=== PATIENT | male | born 1950 | race Caucasian/White ===

== ENCOUNTER 2017-01-21 11:36 | Emergency (ER) | payer MEDICARE, OTHER ==
--- NOTE | 2017-01-21 12:09 | ED Physician Documentation ---
PD HPI WOUND RECHECK - Stated complaint Stated Complaint: INCISION BLEED ABDOMEN - Chief complaint Chief Complaint: Abd Pain - Histroy obtained from History obtained from: Patient - History of Present Illness Location: Abdomen (noted some blood come out from upper part of abd incision. He is 13 days post op from colon surgery. Eating okay an dhaving bowel movements. Notes some red blood with wiping after BMs, but no dark stool.) Timing - onset: Today Associated symptoms: No: Fever, Redness, Swelling Similar symptoms before: Has not had sx before Recently seen: Surgery (13 days ago in [place] while traveling. Had colon surgery for hernia/obstruction, with primary anastomosis. was to see PMD for post-op. Noted some blood froma bd wound this mroning. still with amira in place. No fever, redness, pus.) Review of Systems Constitutional: denies: Fever, Chills GI: reports: Bloody / black stool (red blood and tenderness with wiping after BMs.) PD PAST MEDICAL HISTORY - Past Medical History Past Medical History: Yes GI: Other Musculoskeletal: Chronic back pain - Past Surgical History Past Surgical History: Yes General: Other - Present Medications Home Medications: Ambulatory Orders Medication Instructions Recorded Confirmed Docusate Sodium 100 mg PO DAILY #30 capsule 01/21/17 Hydrocortisone Acetate [Anucort-Hc] 25 mg RC DAILY #5 supp.rect 01/21/17 Oxycodone HCl/Acetaminophen 1 each PO Q6H PRN #20 tablet 01/21/17 [Percocet 5-325 mg Tablet] - Social History Does the pt smoke?: Yes Smoking Status: Current every day smoker Does the pt drink ETOH?: Yes - Immunizations Immunizations are current?: Yes PD ED PE NORMAL - Vitals Vital signs reviewed: Yes - General General: Alert and oriented X 3, No acute distress, Well developed/nourished - Cardiac Cardiac: RRR, No murmur - Respiratory Respiratory: No respiratory distress, Clear bilaterally - Abdomen Abdomen: Normal bowel sounds, Soft, Non distended, No organomegaly, Other ( steri strips on abd incision wound. clean and dry except mild dried blood at upper end. No signs of infection. bedside U/S showed no fluid collections under skin. Amira in place too and these were removed without problem. ) - Rectal Rectal: Other (external hemorrhoids, not thrmobosed, with guiac negative stool otherwise. ) - Back Back: No CVA TTP - Derm Derm: Normal color, Warm and dry - Extremities Extremities: No edema, No calf tenderness / cord - Neuro Neuro: Alert and oriented X 3, No motor deficit, Normal speech Results - Vitals Vitals: Vital Signs - 24 hr 01/21/17 01/21/17 11:40 12:40 Temperature 36.5 C Heart Rate 84 88 Respiratory 17 18 Rate Blood Pressure 114/76 104/68 O2 Saturation 97 96 Oxygen O2 Source Room air PD MEDICAL DECISION MAKING - ED course Complexity details: considered differential (steri strips removed and no signs of infection at wounds. Bedside U/S shows no obvious residula hematoma. ), d/w patient Departure - Departure Disposition: 01 Home, Self Care Clinical Impression: Postoperative bleeding from incision Hemorrhoids Qualifiers: Hemorrhoid type: unspecified Qualified Code(s): K64.9 - Unspecified hemorrhoids Condition: Stable Record reviewed to determine appropriate education?: Yes Instructions: ED Hemorrhoids Follow-Up: JOSÉ Gomez [Provider Group] Prescriptions: Hydrocortisone Acetate [Anucort-Hc] 25 mg RC DAILY #5 supp.rect Docusate Sodium 100 mg PO DAILY #30 capsule Oxycodone HCl/Acetaminophen [Percocet 5-325 mg Tablet] 1 each PO Q6H PRN #20 tablet PRN Reason: Pain Comments: Drink lots of fluids. Daily stool softener. Continue pain meds as needed, but trying to taper use over the next week or so. Regular Tylenol for milder pain. Anusol suppository daily for 5 days for hemorrhoid. Recheck with PMD in 4-5 days , call for appt. Discharge Date/Time: 01/21/17 12:45
[2017-01-21 12:41] VITALS: BP 104/68
== END 2017-01-21 12:45 | disposition home or self-care (01) ==
LOC: ED 11:36
DX: K91.841 Postprocedural hemorrhage of a digestive system organ or structure following other procedure (principal); K64.9 Unspecified hemorrhoids; F17.200 Nicotine dependence, unspecified, uncomplicated
CPT/HCPCS: 99283

== ENCOUNTER 2018-06-10 13:05 | Emergency (ER) | payer MEDICARE, OTHER ==
[2018-06-10] MEDS ORDERED: ACETAMINOPHEN 325 MG TABLET PO STA (14:34)
[2018-06-10] MEDS ORDERED: SODIUM CHLORIDE 0.9% 1,000 ML IV ONE (14:39)
[2018-06-10 15:03] LABS: BASOPHILS # (AUTO) 0.1 10^3/uL (0.0-0.1); BASOPHILS % (AUTO) 0.6 %; EOSINOPHILS % (AUTO) 0.1 %; LYMPHOCYTES # (AUTO) 0.3 10^3/uL (1.5-3.5); LYMPHOCYTES % (AUTO) 2.3 %; MEAN CORPUSCULAR HEMOGLOBIN 38.1 pg (27.0-31.0); MEAN CORPUSCULAR HGB CONC 35.6 g/dL (32.0-36.0); MEAN CORPUSCULAR VOLUME 107.1 fL (80.0-94.0); MEAN PLATELET VOLUME 6.7 fL (7.4-11.4); MONOCYTES # (AUTO) 0.5 10^3/uL (0.0-1.0); MONOCYTES % (AUTO) 3.6 %; NEUTROPHILS # (AUTO) 12.4 10^3/uL (1.5-6.6); NEUTROPHILS % (AUTO) 93.4 %; PLT - PLATELET COUNT 281 10^3/uL (130-450); RED BLOOD COUNT 3.41 10^6/uL (4.70-6.10); WHITE BLOOD COUNT 13.2 x10^3/uL (4.8-10.8)
[2018-06-10 15:18] LABS: ALBUMIN 4.2 g/dL (3.2-5.5); ALBUMIN/GLOBULIN RATIO 1.4 (1.0-2.2); BILIRUBIN,TOTAL 0.7 mg/dL (0.2-1.0); CALCIUM 10.8 mg/dL (8.5-10.3); CREATININE 0.7 mg/dL (0.6-1.2); TOTAL PROTEIN 7.1 g/dL (6.7-8.2)
--- NOTE | 2018-06-10 15:29 | XRAY Report ---
Reason: FEVER Procedure Date: 06/10/2018 Accession Number: [id number] / [id number] Procedure: XR - Chest 2 View X-Ray CPT Code: 46275 FULL RESULT: EXAM: CHEST RADIOGRAPHY EXAM DATE: 06/10/2018 03:01 PM. CLINICAL HISTORY: FEVER. COMPARISON: None. TECHNIQUE: 2 views. FINDINGS: Lungs/Pleura: No focal opacities evident. No pleural effusion. No pneumothorax. Normal volumes. Mediastinum: Heart and mediastinal contours are unremarkable. Other: None. IMPRESSION: Normal 2-view chest radiography. RAD[facility]
[2018-06-10 16:20] LABS: BILIRUBIN,URINE NEGATIVE (NEGATIVE); GLUCOSE, URINE (UA) NEGATIVE (NEGATIVE); KETONES,URINE (UA) NEGATIVE (NEGATIVE); LEUKOCYTE ESTERASE, URINE MODERATE (NEGATIVE); NITRITE,URINE POSITIVE (NEGATIVE); OCCULT BLOOD,URINE LARGE (NEGATIVE); PH,URINE 7.5 PH (5.0-7.5); PROTEIN,URINE TRACE mg/dL (NEGATIVE); UROBILINOGEN,URINE 0.2 (NORMAL) E.U./dL (NORMAL)
[2018-06-10 16:22] LABS: CLARITY,URINE HAZY (CLEAR)
[2018-06-10 16:36] LABS: BACTERIA,URINE Rare /HPF (None Seen); SQUAMOUS EPITHELIAL CELL,UR NONE SEEN (<= Few); WBC CLUMPS,URINE PRESENT
[2018-06-10] MEDS ORDERED: cefTRIAXone 1 GM in SODIUM CHLORIDE 0.9% MINIBAG 100 ML IV STA (17:01)
--- NOTE | 2018-06-10 18:38 | ED Physician Documentation ---
History of Present Illness - Stated complaint Stated Complaint: CHILLS/FEVER - Chief complaint Chief Complaint: Fever - History obtained from History obtained from: Patient - History of Present Illness Timing: Prior to arrival Pain level max: 0 Pain level now: 0 Quality: FEVER 102 Improved by: NOTHING Worsened by: NOTHING Associated symptoms: PINKISH URINE - Additonal information Additional information: Pt states had a prostate biopsy yesterday without complications and sent home on Cipro. Woke up this morning with a fever. Denies any pain and other symptoms except for hematuria which was expected after prostate biopsy. Denies any sick contact or travel. Review of Systems Ten Systems: 10 systems reviewed and negative Constitutional: reports: Fever. denies: Myalgias Nose: denies: Rhinorrhea / runny nose, Congestion Throat: denies: Sore throat Cardiac: denies: Chest pain / pressure Respiratory: denies: Dyspnea, Cough GI: denies: Abdominal Pain, Nausea, Vomiting, Diarrhea : reports: Frequency, Hematuria. denies: Dysuria Skin: denies: Rash PD PAST MEDICAL HISTORY - Past Medical History Past Medical History: Yes Cardiovascular: Hypertension Respiratory: COPD Neuro: None Endocrine/Autoimmune: None GI: Other HEENT: None Musculoskeletal: Rheumatoid arthritis, Chronic back pain Derm: None Other Past Medical History: multiple colon resections - Past Surgical History Past Surgical History: Yes General: Other - Present Medications Home Medications: Ambulatory Orders Medication Instructions Recorded Confirmed Docusate Sodium 100 mg PO DAILY #30 capsule 01/21/17 Oxycodone HCl/Acetaminophen 1 each PO Q6H PRN #20 tablet 01/21/17 [Percocet 5-325 mg Tablet] Alfuzosin HCl [Uroxatral] 10 mg PO 06/10/18 Cephalexin [Keflex] 500 mg PO TID 10 Days #30 capsule 06/10/18 Ciprofloxacin/Ciprofloxa HCl 500 mg PO BID 06/10/18 06/10/18 [Ciprofloxacin ER 500 mg Tablet] Cyclobenzaprine [Flexeril] 06/10/18 Fluticasone/Salmeterol [Advair 1 each IH BID 06/10/18 06/10/18 100-50 Diskus] Lisinopril 10 mg PO DAILY 06/10/18 06/10/18 - Allergies Allergies/Adverse Reactions: Allergies Allergy/AdvReac Type Severity Reaction Status Date / Time No Known Drug Allergies Allergy Verified 06/10/18 13:18 - Social History Does the pt smoke?: Yes Smoking Status: Current every day smoker Does the pt drink ETOH?: Yes - Family History Family history: reports: Non contributory - Immunizations Immunizations are current?: Yes PD ED PE NORMAL - Vitals Vital signs reviewed: Yes - General General: Alert and oriented X 3, No acute distress, Well developed/nourished - HEENT HEENT: Moist mucous membranes, Pharynx benign - Neck Neck: Supple, no meningeal sign - Cardiac Cardiac: RRR, No murmur - Respiratory Respiratory: No respiratory distress, Clear bilaterally - Abdomen Abdomen: Normal bowel sounds, Soft, Non tender, Non distended - Back Back: No CVA TTP - Derm Derm: Warm and dry, No rash - Extremities Extremities: No deformity - Neuro Neuro: Alert and oriented X 3 - Psych Psych: Normal mood, Normal affect Results - Vitals Vitals: Vital Signs - 24 hr 06/10/18 06/10/18 06/10/18 13:14 14:05 15:32 Temperature 37.1 C 37.6 C H Heart Rate 113 H 106 H 92 Respiratory 22 16 12 Rate Blood Pressure 121/76 108/61 123/76 O2 Saturation 97 96 96 06/10/18 17:21 Temperature 36.8 C Heart Rate 85 Respiratory 18 Rate Blood Pressure 107/73 O2 Saturation 98 Oxygen O2 Source Room air - Labs Labs: Laboratory Tests 06/10/18 06/10/18 06/10/18 14:50 14:50 14:50 WBC 13.2 H RBC 3.41 L Hgb 13.0 L Hct 36.5 L MCV 107.1 H MCH 38.1 H MCHC 35.6 RDW 13.0 Plt Count 281 MPV 6.7 L Neut # (Auto) 12.4 H Lymph # (Auto) 0.3 L [place] # (Auto) 0.5 Eos # (Auto) 0.0 Baso # (Auto) 0.1 Absolute Nucleated RBC 0.01 Nucleated RBC % 0.0 Sodium 129 L Potassium 4.0 Chloride 97 L Carbon Dioxide 24 Anion Gap 8.0 BUN 11 Creatinine 0.7 Estimated GFR (MDRD) 112 Glucose 103 H Lactic Acid 0.9 Calcium 10.8 H Total Bilirubin 0.7 AST 23 ALT 16 Alkaline Phosphatase 64 Total Protein 7.1 Albumin 4.2 Globulin 2.9 Albumin/Globulin Ratio 1.4 Urine Color Urine Clarity Urine pH Ur Specific [place] Urine Protein Urine Glucose (UA) Urine Ketones Urine Occult Blood Urine Nitrite Urine Bilirubin Urine Urobilinogen Ur Leukocyte Esterase Urine RBC Urine WBC Urine WBC Clumps Ur Squamous Epith Cells Urine Bacteria Ur Microscopic Review Urine Culture Comments 06/10/18 16:11 WBC RBC Hgb Hct MCV MCH MCHC RDW Plt Count MPV Neut # (Auto) Lymph # (Auto) [place] # (Auto) Eos # (Auto) Baso # (Auto) Absolute Nucleated RBC Nucleated RBC % Sodium Potassium Chloride Carbon Dioxide Anion Gap BUN Creatinine Estimated GFR (MDRD) Glucose Lactic Acid Calcium Total Bilirubin AST ALT Alkaline Phosphatase Total Protein Albumin Globulin Albumin/Globulin Ratio Urine Color YELLOW Urine Clarity HAZY Urine pH 7.5 Ur Specific [place] 1.020 Urine Protein TRACE Urine Glucose (UA) NEGATIVE Urine Ketones NEGATIVE Urine Occult Blood LARGE H Urine Nitrite POSITIVE H Urine Bilirubin NEGATIVE Urine Urobilinogen 0.2 (NORMAL) Ur Leukocyte Esterase MODERATE H Urine RBC 6-10 H Urine WBC >25 H Urine WBC Clumps PRESENT Ur Squamous Epith Cells NONE SEEN Urine Bacteria Rare Ur Microscopic Review INDICATED Urine Culture Comments INDICATED PD MEDICAL DECISION MAKING - ED course Complexity details: re-evaluated patient (1700 Pt informed of test results. Agreed to IV Rocephin for his UTI. Pt states he feels good and wants to go home. Will discharge on Keflex. 1830 Tolerated Rocephin, IVF and oral fluids. NAD. Nontoxic appearing. Sitting at the bedside. Discussed outpt treatment plans: Keflex, water, urology appointment, PCP to recheck sodium level. Pt and expressed understanding after questions were answered.), considered differential (post procedural fever, UTI, sepsis), d/w patient, d/w family Departure - Departure Disposition: 01 Home, Self Care Clinical Impression: Hyponatremia Fever Qualifiers: Fever type: post-procedural Qualified Code(s): R50.82 - Postprocedural fever UTI (urinary tract infection) Qualifiers: Urinary tract infection type: acute cystitis Hematuria presence: without hematuria Qualified Code(s): N30.00 - Acute cystitis without hematuria Condition: Good Instructions: ED UTI Cystitis Male, ED Fever Control, ED Hyponatremia Follow-Up: Dee Pastrana MD [Primary Care Provider] - Prescriptions: Cephalexin [Keflex] 500 mg PO TID 10 Days #30 capsule Comments: DRINK 6-8 GLASSES OF WATER PER DAY. TAKE THE ANTIBIOTIC KEFLEX PRESCRIBED FOR YOUR UTI. URINE AND BLOOD CULTURES WERE DONE AND RESULTS ARE PENDING. CALL YOUR UROLOGIST ON WEDNESDAY AND GET AN EARLIER APPOINTMENT. IF WORSE RETURN TO THE E.R. YOUR SODIUM LEVEL TODAY IS 129. INFORM YOUR PCP YOU MAY NEED TO HAVE IT RECHECK ON WEDNESDAY.
[2018-06-10 18:54] VITALS: BP 125/80
== END 2018-06-10 18:56 | disposition home or self-care (01) ==
LOC: ED 13:05
DX: E87.1 Hypo-osmolality and hyponatremia (principal); R50.82 Postprocedural fever; N30.00 Acute cystitis without hematuria
CPT/HCPCS: 71046; 80053; 81001; 83605; 85025; 87040; 87086; 87181; 96361; 96365; 99283; 99284; A9270; 81003

== ENCOUNTER 2018-06-11 07:40 | Inpatient (IN) | payer MEDICARE, OTHER ==
--- NOTE | 2018-06-11 08:24 | ED Physician Documentation ---
History of Present Illness - Stated complaint Stated Complaint: ABN LAB RESULT - Chief complaint Chief Complaint: General - History obtained from History obtained from: Patient - History of Present Illness Timing: Yesterday Pain level max: 0 Pain level now: 0 Associated symptoms: fever, chills, hematuria, hesitancy - Additonal information Additional information: Pt was seen here yesterday for fever, dysuria and hematuria. Pt had a prostate biopsy done June [address] Pastrana and sent home on Cipro. Yesterday in the E.R. pt was febrile and labs showed UTI. Pt received Rocephin and sent home on Keflex. Pt wanted to go home. He was NAD, nontoxic. Since pt left the E.R. yesterday he denied recurrence of his fever. He stated that he has more strings of blood coming out when he urinates, he continues to have urgency, hesitancy and hematuria. He states he feels more tired than yesterday. Review of Systems Ten Systems: 10 systems reviewed and negative Constitutional: reports: Fever, Chills, Fatigue Throat: denies: Sore throat Cardiac: denies: Chest pain / pressure Respiratory: denies: Dyspnea, Cough GI: denies: Abdominal Pain, Nausea, Vomiting, Diarrhea : reports: Dysuria, Frequency, Hesitancy, Hematuria Skin: denies: Rash Neurologic: reports: Generalized weakness. denies: Focal weakness, Near syncope, Confused, Altered mental status PD PAST MEDICAL HISTORY - Past Medical History Past Medical History: Yes Cardiovascular: Hypertension Respiratory: COPD Neuro: None Endocrine/Autoimmune: None GI: Other HEENT: None Musculoskeletal: Rheumatoid arthritis, Chronic back pain Derm: None - Past Surgical History Past Surgical History: Yes General: Other - Present Medications Home Medications: Ambulatory Orders Medication Instructions Recorded Confirmed Alfuzosin HCl [Uroxatral] 10 mg PO 1700 06/10/18 06/11/18 Fluticasone/Salmeterol [Advair 1 puffs INH BID 06/10/18 06/11/18 100-50 Diskus] RX: Cyclobenzaprine [Flexeril] 10 mg PO DAILY PRN 06/10/18 06/11/18 RX: Lisinopril 10 mg PO DAILY 06/10/18 06/11/18 Cephalexin [Keflex] 500 mg PO [id number] 06/11/18 06/11/18 Multivit-Min/FA/Lycopen/Lutein 1 tab PO DAILY 06/11/18 06/11/18 [Centrum Silver Men Tablet] Oxycodone HCl/Acetaminophen 1 tab PO BID PRN 06/11/18 06/11/18 [Oxycodone-Acetaminophen 5-325] RX: Tizanidine HCl 4 mg PO QID PRN 06/11/18 06/11/18 - Allergies Allergies/Adverse Reactions: Allergies Allergy/AdvReac Type Severity Reaction Status Date / Time No Known Drug Allergies Allergy Verified 06/11/18 07:53 - Social History Does the pt smoke?: Yes Smoking Status: Current every day smoker Does the pt drink ETOH?: Yes Does the pt have substance abuse?: No - Family History Family history: reports: Non contributory - Immunizations Immunizations are current?: Yes - POLST Patient has POLST: No PD ED PE NORMAL - Vitals Vital signs reviewed: Yes - General General: Alert and oriented X 3, No acute distress, Well developed/nourished - HEENT HEENT: Pharynx benign, Other (dry tongue) - Neck Neck: Supple, no meningeal sign, No adenopathy - Cardiac Cardiac: RRR, No murmur - Respiratory Respiratory: No respiratory distress, Clear bilaterally - Abdomen Abdomen: Normal bowel sounds, Soft, Non tender, Non distended, Other (old surgical scars and hernia) - Back Back: No CVA TTP - Derm Derm: Normal color, Warm and dry, No rash - Extremities Extremities: No deformity, Normal ROM s pain - Neuro Neuro: Alert and oriented X 3 - Psych Psych: Normal mood, Normal affect Results - Vitals Vitals: Vital Signs - 24 hr 06/11/18 07:49 Temperature 36.6 C Heart Rate 93 Respiratory 20 Rate Blood Pressure 119/79 O2 Saturation 97 Oxygen O2 Source Room air PD MEDICAL DECISION MAKING - ED course Complexity details: re-evaluated patient (Explained to pt blood cultures and agreed to admission.), considered differential (urosepsis, bacteremia, pr ostatis, post procedural complication), d/w patient (Explained to pt and +blood cultures requiring IV antibiotics. They agreed with admission.), d/w family, d/w PMD ([id number] Case discussed with hospitalist Dr. Peralta including urology consult. Agreed to admit pt, full admission. Informed her I gave pt Rocephin yesterday.), d/w linux consultant ([phone] Lui urologist covering for pt's urologist. Agreed with plan of admission for IV antibiotics but does not think urology follow up in pt is required. He will inform pt' urologist regarding admission.) - Consults Consults: Consulted (name) ([phone] Dr Lui covering for pt's urologist. Case discussed. He stated there's 1% after a procedure pt becomes septic. He agreed with admitting pt but states its a medical problem at this time and pt will not need a urologist.), Discussed case with ([phone] Case discussed in details with education department chair Hospitalist Dr Devante Peralta including recent urology consult. I informed her pt received Rocephin yesterday. She stated she will take care of ordering the antibiotics and pt will be a full admission.) Departure - Departure Disposition: 66 [facility] DC/Xfer Clinical Impression: Bacteremia UTI (urinary tract infection) Qualifiers: Urinary tract infection type: site unspecified Hematuria presence: with hematuria Qualified Code(s): N39.0 - Urinary tract infection, site not specified Condition: Stable Discharge Date/Time: 06/11/18 09:20
[2018-06-11] MEDS ORDERED: SODIUM CHLORIDE FLUSH 0.9% 10 ML SYRINGE IVP PRN (08:40)
[2018-06-11 08:51] LABS: BASOPHILS # (AUTO) 0.1 10^3/uL (0.0-0.1); BASOPHILS % (AUTO) 0.7 %; EOSINOPHILS % (AUTO) 0.1 %; HGB - HEMOGLOBIN 12.1 g/dL (14.0-18.0); LYMPHOCYTES # (AUTO) 0.7 10^3/uL (1.5-3.5); LYMPHOCYTES % (AUTO) 4.1 %; MEAN CORPUSCULAR HGB CONC 35.1 g/dL (32.0-36.0); MEAN CORPUSCULAR VOLUME 108.2 fL (80.0-94.0); MEAN PLATELET VOLUME 7.2 fL (7.4-11.4); MONOCYTES # (AUTO) 0.6 10^3/uL (0.0-1.0); MONOCYTES % (AUTO) 3.6 %; NEUTROPHILS # (AUTO) 14.6 10^3/uL (1.5-6.6); NEUTROPHILS % (AUTO) 91.5 %; PLT - PLATELET COUNT 241 10^3/uL (130-450); RED BLOOD COUNT 3.19 10^6/uL (4.70-6.10); RED CELL DISTRIBUTION WIDTH 12.9 % (12.0-15.0)
[2018-06-11 08:59] LABS: CALCIUM 10.4 mg/dL (8.5-10.3); CREATININE 0.7 mg/dL (0.6-1.2)
[2018-06-11] MEDS: SODIUM CHLORIDE 0.9% 1,000 ML IV ONE ×2 (09:19→14:14)
--- NOTE | 2018-06-11 09:25 | HISTORY & PHYSICAL EXAMINATION ---
Chief Complaint - Chief Complaint Chief Complaint: positive blood cultures from yesterday History of Present Illness - Admitted From Admitted From:: ED - History Obtained From Records Reviewed: yes History obtained from: chart review, patient, -Gretchen Exam Limitations: none - History of Present Illness HPI Comment/Other: Pedro Hooker (Bob) is a 67-year old male with a past medical history of life long tobacco dependence, current alcoholism, COPD, chronic cough, chronic sinusitis, GERD, colon polyps, ischemic bowel with resection, umbilical hernia, hypertension, prostate cancer, RA, and chronic back pain. The patient underwent a prostate biopsy with Dr. Pastrana on 06/09/18 and was sent home on prophylactic Cipro. Yesterday he had fevers, chills, and severe rigors at home, so presented to the ED. He was stabilized and sent home, but this morning, blood cultures that were obtained yesterday show e. coli, so the patient was called at home to return to the ED for an inpatient admission. Upon arrival to the ED the patient has continued fatigue, poor appetite, rigors, chills, and a fever overnight that his took and reports as 102.4 orally. He states that he is having increased urinary retention symptoms, and when he does urinate, it is blood streaked. On exam, he denies chest pain, headaches, dizziness, nausea, vomiting, diarrhea, a new rash, increased shortness of breath, or a new productive cough. Vital signs appear stable and he is afebrile. He is accompanied by his Gretchen. He is agreeable to a hospital admission for treatment of this e. coli in his blood stream. With his current alcohol use, I will prescribe BEER, to prevent alcohol withdrawal. 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 and consequently has chronic back pain. He is to Gretchen of 18 years, and they each have children seperately. He and Gretchen spend [place] on [facility] and lin in [place] at their second home. He admits to tobacco use since the age of 17, and currently smokes 2 PPD, alcoholism and currently drinks 6-8 beers per day. He has been using THC oils which he adds to his morning coffee. He states that he has a POLST form at home, and wishes to be a DNR. - Substance History Use: Uses substance without health or social issues: Tobacco Use Issues: uncomplicated Abuse: Recurrent use of substance despite neg consequences: NONE Dependence: Experiences withdrawal or developed tolerances: NONE Tobacco Details: Cigarettes - POLST Patient has POLST: No POLST Status: DNR Meds/Allgy - Home Medications Home Medications: Ambulatory Orders Medication Instructions Recorded Confirmed Alfuzosin HCl [Uroxatral] 10 mg PO 1700 06/10/18 06/11/18 Cyclobenzaprine [Flexeril] 10 mg PO DAILY PRN 06/10/18 06/11/18 Fluticasone/Salmeterol [Advair 1 puffs INH BID 06/10/18 06/11/18 100-50 Diskus] Lisinopril 10 mg PO DAILY 06/10/18 06/11/18 Cephalexin [Keflex] 500 mg PO [id number] 06/11/18 06/11/18 Multivit-Min/FA/Lycopen/Lutein 1 tab PO DAILY 06/11/18 06/11/18 [Centrum Silver Men Tablet] Oxycodone HCl/Acetaminophen 1 tab PO BID PRN 06/11/18 06/11/18 [Oxycodone-Acetaminophen 5-325] Tizanidine HCl 4 mg PO QID PRN 06/11/18 06/11/18 - Allergies Allergies/Adverse Reactions: Allergies Allergy/AdvReac Type Severity Reaction Status Date / Time No Known Drug Allergies Allergy Verified 06/11/18 07:53 Review of Systems - Constitutional Constitutional: reports: Fatigue, Fever, Chills, Weakness - Eyes Eyes: reports: Corrective lenses - Ears, Nose & Throat Ears, Nose & Throat: reports: Nasal congestion, Postnasal drainage - Respiratory Respiratory: reports: Cough, Sputum production - Gastrointestinal Gastrointestinal: reports: Reflux/heartburn, Poor appetite - Genitourinary Genitourinary: reports: Hematuria, Nocturia - Musculoskeletal Musculoskeletal: reports: Back pain (chronic) - Integumentary Integumentary: reports: Dryness, Pigment changes - Neurological Neurological: reports: General weakness - All Other Systems All Other Systems: reports: Reviewed and negative Prior Level of Functionality: Independent, no recent falls. Does all ADLs, drives. Exam - Vital Signs Reviewed Vital Signs: Yes Vital Signs: Vital Signs x48h Temp Pulse Resp BP Pulse Ox 06/11/18 07:49 36.6 C 93 20 119/79 97 - Physical Exam General Appearance: positive: No acute distress, Alert Eyes Bilateral: positive: PERRL ENT: positive: Pharynx nml, No signs of dehydration Neck: positive: Thyroid nml, No JVD, Trachea midline Respiratory: positive: Chest non-tender, No respiratory distress, Other (bilat eral low lobe crackles.) Cardiovascular: positive: Regular rate & rhythm, No gallop, Systolic murmur Peripheral Pulses: positive: 2+ Abdomen: positive: Non-tender, Nml bowel sounds, Other (midline hernia, soft and stable.) Back: positive: Nml inspection Skin: positive: No rash, Warm, Dry Extremities: positive: Non-tender, Full ROM, Nml appearance, No pedal edema Neurologic/Psychiatric: positive: Oriented x3, CN's nml (2-12), Motor nml, Sensation nml, Mood/affect nml Reflexes: Bicep (R): 3+, Bicep (L): 3+ Conclusion/Plan - Problem List (1) E coli bacteremia Conclusion/Plan: On 06/09/18 the patient underwent a prostate biopsy which was obtained per rectum and was sent home with Cipro to be take prophylactically. The patient presented to the ED yesterday (06/10) with fevers, chills and increased fatigue. Blood cultures were drawn and preliminary results early this morning grew e. coli, so a call was made for the patient to return to the ED for inpatient treatment. Plan: IV fluids, IV treatment with Zosyn, await final culture results. (2) Hematuria, gross Conclusion/Plan: The patient describes urinary problems since his prostate bx on 06/09 in which he has increased difficulty with retention and has noticed almaz blood each time that he attempts to urinate. This has been ongoing, and he is agreeable to a sanabria to evaluate the exact amount and to keep his bladder decompressed in hopes to resolve the problem. He likely has some inflammation due to the biopsy, causing urinary retention, which may be leading to the hematuria. Plan: CT abdomen/pelvis to evaluate for other internal bleeding, complications or other causes of this hematuria. Place indwelling sanabria with a prior Uro-jet for comfort. Daily labs to monitor H/H. (3) Fever Conclusion/Plan: The patient had a reported fever at home of 102.4-orally. He had severe rigors, with fevers, chills, poor appetite and generalized fatigue. The patient has b een afebrile today, since admission. Plan: Continue to monitor vital signs and give tylenol for comfort. Alert provider for fevers greater than 101.5 (38.6), for new blood cultures. Qualifiers: Fever type: post-procedural Qualified Code(s): R50.82 - Postprocedural fever (4) Prostate cancer Conclusion/Plan: The patient is seen by Dr. Dee Pastrana at [facility] in [place], [place]. He was first diagnosed in [place] around 3-4 years ago and has been prescribed Alfuzosin. He underwent this latest prostate bx on 06/09 to evaluate and stage it as the patient wanted a more clear prognosis. Plan: I will attach this provider to my admission H&P. Continue Alfuzosin daily, insert sanabria for gross hematuria and urinary retention overnight with hopes to remove in the AM. (5) Alcohol dependence Conclusion/Plan: The patient admits to consuming 6-8 beers per day for the last several years. Plan: BEER TID to prevent alcohol withdrawal. Qualifiers: Substance use status: unspecified alcohol-induced disorder Qualified Code(s): F10.29 - Alcohol dependence with unspecified alcohol-induced disorder (6) Tobacco dependence Conclusion/Plan: The patient states that a year ago, he attempted to quit smoking, but he failed and when he started again graduated to a 2 PPD habit. He has been a life long smoker and started at age 17 years. Plan: Nicotine patch, daily. (7) Chronic back pain Conclusion/Plan: The patient states that he has been a hard worker all of his life. Since 1975, his back has bothered him. He states that no doctor would ever do surgery on it, and they just "throw pills at him to treat it". He is prescribed percocet, and 2 muscle relaxers. He drinks 6-8 beers per night and has recently started adding highly concentrated THC oil to his morning coffee. He also states that he has been told that he has RA in his back and right hand. Plan: Continue home meds, monitor pain and encourage movement. Qualifiers: Back pain location: back pain in unspecified location (8) Hyponatremia Conclusion/Plan: The patient was found to have a low sodium of 128, without confusion. This may be a chronic problem for him given his cancer history and alcoholism. Plan: Daily labs and monitor for increased confusion. - Lab Results Lab results reviewed: Yes Fish Bones: 06/12/18 06:20 06/12/18 06:20 - Diagnostic Imaging Results Diagnostic Imaging Results: positive: Prelim report reviewed Diagnostic Imaging Results Comments: Echo-pending. Abdominal/pelvic CT-ordered. Core Measures - Anticipated LOS I expect patient to be DC'd or transferred within 96 hours.: Yes - DVT/VTE - Prophylaxis VTE/DVT Device ordered at admit?: Yes VTE/DVT Prophylaxis med ordered at admit?: Yes - Stroke - Rehab Assessment Rehab services assessment to be ordered?: No Not Ordered - Medical Reason: Contraindicated - AMI - Statin at Admit Aspirin Prescribed on Admit: Yes
[2018-06-11] MEDS: SODIUM CHLORIDE FLUSH 0.9% 10 ML SYRINGE IVP SCH ×2 (10:14→17:36)
[2018-06-11] MEDS: NICOTINE 21 MG PATCH TOP SCH (10:38)
[2018-06-11] MEDS: POLYETHYLENE GLYCOL 3350 17 GM PACKET PO SCH ×2 (10:38→10:51)
[2018-06-11] MEDS: PIPERACILLIN/TAZOBACTAM 4.5 GM in SODIUM CHLORIDE 0.9% MINIBAG 100 ML IV SCH ×3 (10:38→22:02)
[2018-06-11] MEDS ORDERED: oxyCOD/ACETAMIN 5 MG/325 MG TABLET PO PRN (10:59)
[2018-06-11] MEDS ORDERED: tiZANidine 4 MG TABLET PO PRN (11:02)
[2018-06-11] MEDS ORDERED: BEER 480 ML CAN PO SCH (12:00)
[2018-06-11] MEDS ORDERED: ACETAMINOPHEN 325 MG TABLET PO PRN (13:01)
[2018-06-11] MEDS ORDERED: LORazepam 0.5 MG TABLET PO PRN (13:01)
[2018-06-11] MEDS ORDERED: ONDANSETRON ODT 4 MG TABLET TL PRN (13:02)
[2018-06-11] MEDS: PANTOPRAZOLE 40 MG TABLET PO SCH (14:23)
[2018-06-11] MEDS ORDERED: LIDOCAINE 2% URO-JET 5 ML SYRINGE UR PRN (16:24)
[2018-06-11] MEDS: TAMSULOSIN 0.4 MG CAPSULE PO SCH (17:10)
[2018-06-11] MEDS: SACCHAROMYCES BOULARDII 250 MG CAPSULE PO SCH (17:10)
[2018-06-11] MEDS: BEER 480 ML CAN PO SCH ×3 (17:11→22:32)
[2018-06-11] MEDS: SODIUM CHLORIDE 0.9% 1,000 ML IV SCH (17:11)
[2018-06-11] MEDS: oxyCODONE 5 MG TABLET PO PRN ×2 (17:40→22:02)
[2018-06-11] MEDS: BUDESONIDE 0.5 MG/2 ML NEB INH SCH (19:45)
[2018-06-11] MEDS ORDERED: IOPAMIDOL-300 100 ML VIAL ONE (20:10)
[2018-06-11] MEDS ORDERED: IOPAMIDOL-300 100 ML VIAL IVP ONE (20:26)
--- NOTE | 2018-06-11 22:00 | CT Report ---
Reason: hematuria, bacteremia Procedure Date: 06/11/2018 Accession Number: [id number] / [id number] Procedure: CT - Abdomen/Pelvis W/ CPT Code: FULL RESULT: EXAM: CT ABDOMEN AND PELVIS EXAM DATE: 06/11/2018 08:40 PM. CLINICAL HISTORY: Hematuria, bacteremia. COMPARISONS: None. TECHNIQUE: Routine helical CT imaging was performed through the abdomen and pelvis. IV contrast: ISOVUE 300 100mL. Enteric contrast: No. Reconstructions: Coronal and sagittal. In accordance with CT protocol optimization, one or more of the following dose reduction techniques were utilized for this exam: automated exposure control, adjustment of mA and/or KV based on patient size, or use of iterative reconstructive technique. FINDINGS: Lung Bases: Unremarkable. Liver: Normal. No masses. Gallbladder/Bile Ducts: The gallbladder is contracted. Spleen: Normal. Pancreas: Normal. Adrenal Glands: Normal. Kidneys: There is moderate bilateral retroperitoneal edema. Both kidneys enhance uniformly with contrast. There is an exophytic cyst off the posterior right kidney measuring 38 mm in diameter. There are no kidney stones. No ureter stones. Peritoneal Cavity/Bowel: There are findings of previous colon surgery in the anterior upper abdomen. There is high density material consistent with mesh repair of abdominal wall in the right upper quadrant. The small bowel appears normal in caliber without evidence of mechanical obstruction or transition zone. No pneumatosis. There is a small volume of intraperitoneal free fluid. Pelvic Organs: There is a Tena catheter within the urinary bladder. The bladder is empty. The bladder wall appears thickened. There is generalized fat stranding around the bladder and prostate. Vasculature: There is moderate calcification of the abdominal aorta and iliac arteries. No aneurysm. Bones: No significant abnormality. Other: No abscess. IMPRESSION: 1. Fat stranding or inflammation around urinary bladder and prostate. Possible cystitis or prostatitis. 2. No hydronephrosis, kidney stone, or renal/retroperitoneal abscess. There is perinephric edema which could be secondary to volume status, renal failure, pyelonephritis, or secondary to a systemic process. 3. Small intraperitoneal free fluid. No bowel perforation or abscess. No bowel obstruction. RADIA
[2018-06-12] MEDS: SODIUM CHLORIDE FLUSH 0.9% 10 ML SYRINGE IVP SCH ×3 (01:49→17:01)
[2018-06-12] MEDS: SODIUM CHLORIDE 0.9% 1,000 ML IV SCH ×3 (01:56→19:32)
[2018-06-12] MEDS: PIPERACILLIN/TAZOBACTAM 4.5 GM in SODIUM CHLORIDE 0.9% MINIBAG 100 ML IV SCH ×2 (03:52→09:28)
[2018-06-12] MEDS: oxyCODONE 5 MG TABLET PO PRN ×3 (06:37→20:11)
[2018-06-12 06:40] LABS: BASOPHILS % (AUTO) 0.3 %; EOSINOPHILS # (AUTO) 0.1 10^3/uL (0.0-0.7); EOSINOPHILS % (AUTO) 0.9 %; HGB - HEMOGLOBIN 10.6 g/dL (14.0-18.0); LYMPHOCYTES # (AUTO) 0.9 10^3/uL (1.5-3.5); LYMPHOCYTES % (AUTO) 8.4 %; MEAN CORPUSCULAR HEMOGLOBIN 38.1 pg (27.0-31.0); MEAN CORPUSCULAR HGB CONC 34.7 g/dL (32.0-36.0); MEAN CORPUSCULAR VOLUME 109.8 fL (80.0-94.0); MEAN PLATELET VOLUME 7.2 fL (7.4-11.4); MONOCYTES # (AUTO) 0.5 10^3/uL (0.0-1.0); NEUTROPHILS % (AUTO) 85.4 %; PLT - PLATELET COUNT 190 10^3/uL (130-450); RED BLOOD COUNT 2.78 10^6/uL (4.70-6.10); RED CELL DISTRIBUTION WIDTH 13.1 % (12.0-15.0); WHITE BLOOD COUNT 10.6 x10^3/uL (4.8-10.8)
[2018-06-12 06:43] LABS: ALBUMIN 2.9 g/dL (3.2-5.5); ALBUMIN/GLOBULIN RATIO 1.2 (1.0-2.2); BILIRUBIN,TOTAL 0.4 mg/dL (0.2-1.0); CALCIUM 9.3 mg/dL (8.5-10.3); CREATININE 0.8 mg/dL (0.6-1.2); MAGNESIUM 1.6 mg/dL (1.7-2.8); PHOSPHORUS 1.9 mg/dL (2.5-4.6); TOTAL PROTEIN 5.4 g/dL (6.7-8.2)
[2018-06-12] MEDS: PANTOPRAZOLE 40 MG TABLET PO SCH (06:43)
[2018-06-12 07:59] LABS: HB2 TOTAL 10.3 g/dL; HEMOGLOBIN A1C 0.31 g/dL; HEMOGLOBIN A1C % 4.9 % (4.6-6.2)
--- NOTE | 2018-06-12 08:05 | PROVIDER PROGRESS NOTE ---
Subjective - Prog Note Date Prog Note Date: 06/12/18 Prog Note Time: 08:05 - Subjective Pt reports feeling: Improved Subjective: Adonis has no complaints, but finds it disruptive to be in the hospital. He states that his appetite is improved. He denies any new symptoms such as shortness of breath, a rash, dizziness, bladder pain, bleeding, withdrawal symptoms, or a new cough. Current Medications - Current Medications Current Medications: Active Medications Acetaminophen (Tylenol) 650 mg PO Q4HR PRN PRN Reason: Pain or Fever > 38C (100.4F) Last Admin: 06/11/18 15:41 Dose: 650 mg Beer (Beer) 240 ml PO 1700,2000,2200 YUMIKO Budesonide (Pulmicort) 0.5 mg INH RTBID [facility] Last Admin: 06/12/18 09:11 Dose: 0.5 mg Sodium Chloride (Normal Saline 0.9%) 1,000 mls @ 125 mls/hr IV .Q8H YUMIKO Last Admin: 06/12/18 11:08 Dose: 125 mls/hr Cefepime HCl 2 gm/ Sodium (Chloride) 100 mls @ 200 mls/hr IV Q12H YUMIKO Last Infusion: 06/12/18 16:40 Dose: Infused Lidocaine HCl (Xylocaine Uro-Jet 2%) 2.5 ml UR Q6H PRN PRN Reason: PAIN Last Admin: 06/11/18 17:40 Dose: 2.5 ml Lorazepam (Ativan) 0.5 mg PO Q6H PRN PRN Reason: Anxiety Last Admin: 06/11/18 22:03 Dose: 0.5 mg Nicotine (Nicoderm) 1 patch TOP DAILY YUMIKO Last Admin: 06/12/18 08:18 Dose: 1 patch Ondansetron HCl (Zofran Odt) 4 mg TL Q4HR PRN PRN Reason: Nausea / Vomiting Oxycodone HCl (Roxicodone) 10 mg PO Q4HR PRN PRN Reason: PAIN Last Admin: 06/12/18 11:54 Dose: 10 mg Pantoprazole Sodium (Protonix) 40 mg PO QDAC YUMIKO Last Admin: 06/12/18 06:43 Dose: 40 mg Polyethylene Glycol (Miralax) 17 gm PO DAILY [facility] Last Admin: 06/12/18 09:26 Dose: Not Given Saccharomyces Boulardii (Florastor) 500 mg PO BIDWM [facility] Last Admin: 06/12/18 08:18 Dose: 500 mg Sodium Chloride (Normal Saline Flush 0.9%) 10 ml IVP PRN PRN PRN Reason: NEEDED PER PROVIDER ORDERS Sodium Chloride (Normal Saline Flush 0.9%) 10 ml IVP 0100,0900,1700 [facility] Last Admin: 06/12/18 09:27 Dose: Not Given Tamsulosin HCl (Flomax) 0.4 mg PO 1700 [facility] Last Admin: 06/11/18 17:10 Dose: 0.4 mg Tizanidine HCl (Zanaflex) 4 mg PO QID PRN PRN Reason: BACK PAIN Alfuzosin HCl [Uroxatral] 10 mg PO 1700 06/10/18 Cyclobenzaprine [Flexeril] 10 mg PO DAILY PRN 06/10/18 Fluticasone/Salmeterol [Advair 100-50 Diskus] 1 puffs INH BID 06/10/18 Lisinopril 10 mg PO DAILY 06/10/18 Cephalexin [Keflex] 500 mg PO [id number] 06/11/18 Multivit-Min/FA/Lycopen/Lutein [Centrum Silver Men Tablet] 1 tab PO DAILY 06/11/18 Oxycodone HCl/Acetaminophen [Oxycodone-Acetaminophen 5-325] 1 tab PO BID PRN 06/11/18 Tizanidine HCl 4 mg PO QID PRN 06/11/18 Objective - Vital Signs/Intake & Output Reviewed Vital Signs: Yes Intake & Output: Intake & Output 06/09/18 06/10/18 06/11/18 06/12/18 23:59 23:59 23:59 23:59 Intake Total 2123.333 1350 Output Total 1000 700 Balance 1123.333 650 - Objective General Appearance: positive: No acute distress, Alert Eyes Bilateral: positive: PERRL Eyes: OU Conjunctivae pale, OU Scleral icterus ENT: positive: Pharynx nml, No signs of dehydration Neck: positive: Thyroid nml, Trachea midline Respiratory: positive: Chest non-tender, No respiratory distress, Breath sounds nml Cardiovascular: positive: Regular rate & rhythm, No gallop, Systolic murmur Peripheral Pulses: 1+ Radial (R), 1+ Radial (L) Abdomen: positive: Non-tender, Nml bowel sounds, Other (midline hernia,stable.) Back: positive: Nml inspection Skin: positive: No rash, Warm, Dry, Pallor Extremities: positive: Non-tender, Full ROM, Nml appearance, No pedal edema Neurologic/Psychiatric: positive: Oriented x3, CN's nml (2-12), Motor nml, Sensation nml, Depressed mood/affect Reflexes: Bicep (R): 2+, Bicep (L): 2+ - Lab Results Fish Bones: 06/12/18 06:20 06/12/18 06:20 Other Labs: Lab Results x24hrs 06/12/18 06/12/18 06/12/18 Range/Units 06:20 06:20 06:20 WBC (4.8-10.8) x10^3/uL RBC (4.70-6.10) 10^6/uL Hgb (14.0-18.0) g/dL Hct (42.0-52.0) % MCV (80.0-94.0) fL MCH (27.0-31.0) pg MCHC (32.0-36.0) g/dL RDW (12.0-15.0) % Plt Count (130-450) 10^3/uL MPV (7.4-11.4) fL Neut # (Auto) (1.5-6.6) 10^3/uL Lymph # (Auto) (1.5-3.5) 10^3/uL Robeson # (Auto) (0.0-1.0) 10^3/uL Eos # (Auto) (0.0-0.7) 10^3/uL Baso # (Auto) (0.0-0.1) 10^3/uL Absolute Nucleated RBC x10^3/uL Nucleated RBC % /100WBC Sodium (135-145) mmol/L Potassium (3.5-5.0) mmol/L Chloride (101-111) mmol/L Carbon Dioxide (21-32) mmol/L Anion Gap (6-13) BUN (6-20) mg/dL Creatinine (0.6-1.2) mg/dL Estimated GFR (MDRD) (>89) Glucose (70-100) mg/dL Glycated Hemoglobin 4.9 (4.6-6.2) % Estim Average Glucose 94 (70-100) Lactic Acid 0.7 (0.5-2.2) mmol/L Calcium (8.5-10.3) mg/dL Phosphorus (2.5-4.6) mg/dL Magnesium (1.7-2.8) mg/dL Total Bilirubin (0.2-1.0) mg/dL AST (10-42) IU/L ALT (10-60) IU/L Alkaline Phosphatase (42-121) IU/L Total Protein (6.7-8.2) g/dL Albumin (3.2-5.5) g/dL Globulin (2.1-4.2) g/dL Albumin/Globulin Ratio (1.0-2.2) TSH 0.59 (0.34-5.60) uIU/mL 06/12/18 06/12/18 06/11/18 Range/Units 06:20 06:20 08:40 WBC 10.6 (4.8-10.8) x10^3/uL RBC 2.78 L (4.70-6.10) 10^6/uL Hgb 10.6 L (14.0-18.0) g/dL Hct 30.5 L (42.0-52.0) % MCV 109.8 H (80.0-94.0) fL MCH 38.1 H (27.0-31.0) pg MCHC 34.7 (32.0-36.0) g/dL RDW 13.1 (12.0-15.0) % Plt Count 190 (130-450) 10^3/uL MPV 7.2 L (7.4-11.4) fL Neut # (Auto) 9.0 H (1.5-6.6) 10^3/uL Lymph # (Auto) 0.9 L (1.5-3.5) 10^3/uL Robeson # (Auto) 0.5 (0.0-1.0) 10^3/uL Eos # (Auto) 0.1 (0.0-0.7) 10^3/uL Baso # (Auto) 0.0 (0.0-0.1) 10^3/uL Absolute Nucleated RBC 0.00 x10^3/uL Nucleated RBC % 0.0 /100WBC Sodium 129 L (135-145) mmol/L Potassium 3.8 (3.5-5.0) mmol/L Chloride 103 (101-111) mmol/L Carbon Dioxide 21 (21-32) mmol/L Anion Gap 5.0 L (6-13) BUN 9 (6-20) mg/dL Creatinine 0.8 (0.6-1.2) mg/dL Estimated GFR (MDRD) 96 (>89) Glucose 106 H (70-100) mg/dL Glycated Hemoglobin (4.6-6.2) % Estim Average Glucose (70-100) Lactic Acid 0.8 (0.5-2.2) mmol/L Calcium 9.3 (8.5-10.3) mg/dL Phosphorus 1.9 L (2.5-4.6) mg/dL Magnesium 1.6 L (1.7-2.8) mg/dL Total Bilirubin 0.4 (0.2-1.0) mg/dL AST 19 (10-42) IU/L ALT 14 (10-60) IU/L Alkaline Phosphatase 55 (42-121) IU/L Total Protein 5.4 L (6.7-8.2) g/dL Albumin 2.9 L (3.2-5.5) g/dL Globulin 2.5 (2.1-4.2) g/dL Albumin/Globulin Ratio 1.2 (1.0-2.2) TSH (0.34-5.60) uIU/mL 06/11/18 06/11/18 Range/Units 08:40 08:40 WBC 16.0 H (4.8-10.8) x10^3/uL RBC 3.19 L (4.70-6.10) 10^6/uL Hgb 12.1 L (14.0-18.0) g/dL Hct 34.5 L (42.0-52.0) % MCV 108.2 H (80.0-94.0) fL MCH 38.0 H (27.0-31.0) pg MCHC 35.1 (32.0-36.0) g/dL RDW 12.9 (12.0-15.0) % Plt Count 241 (130-450) 10^3/uL MPV 7.2 L (7.4-11.4) fL Neut # (Auto) 14.6 H (1.5-6.6) 10^3/uL Lymph # (Auto) 0.7 L (1.5-3.5) 10^3/uL Robeson # (Auto) 0.6 (0.0-1.0) 10^3/uL Eos # (Auto) 0.0 (0.0-0.7) 10^3/uL Baso # (Auto) 0.1 (0.0-0.1) 10^3/uL Absolute Nucleated RBC 0.00 x10^3/uL Nucleated RBC % 0.0 /100WBC Sodium 128 L (135-145) mmol/L Potassium 4.1 (3.5-5.0) mmol/L Chloride 99 L (101-111) mmol/L Carbon Dioxide 22 (21-32) mmol/L Anion Gap 7.0 (6-13) BUN 11 (6-20) mg/dL Creatinine 0.7 (0.6-1.2) mg/dL Estimated GFR (MDRD) 112 (>89) Glucose 121 H (70-100) mg/dL Glycated Hemoglobin (4.6-6.2) % Estim Average Glucose (70-100) Lactic Acid (0.5-2.2) mmol/L Calcium 10.4 H (8.5-10.3) mg/dL Phosphorus (2.5-4.6) mg/dL Magnesium (1.7-2.8) mg/dL Total Bilirubin (0.2-1.0) mg/dL AST (10-42) IU/L ALT (10-60) IU/L Alkaline Phosphatase (42-121) IU/L Total Protein (6.7-8.2) g/dL Albumin (3.2-5.5) g/dL Globulin (2.1-4.2) g/dL Albumin/Globulin Ratio (1.0-2.2) TSH (0.34-5.60) uIU/mL ABX Reporting Has patient been on IV antibiotics over the past 48 hours?: Yes Assessment/Plan - Problem List (1) E coli bacteremia Impression: Final sensitivities are now back and show Ana as being resistant. After reviewing both the urine and blood culture sensitivity list, he will be changed to cefepime IV, since we do not care tetracycline to administer here. Plan: Start cefepime, discontinue pip-tazo and give BID probiotic. (2) Hematuria, gross Impression: Today the patient is found to have no further bleeding in his sanabria and he has been quite happy with the catheter as it has been difficult to void since undergoing his prostate biopsy on 06/09. The catheter will likely stay in place until the time of discharge as keeping the bladder decompressed will prevent further bleeding and keep the prostate settled down. Plan: Continue to monitor and ok to leave sanabria in place as per patient request. (3) Fever Impression: The patient has not had any further documented fevers since being admitted. Today, his antibiotic treatment was changed to the correct treatment based on sensitivities. Plan: continue to monitor and treat low grade fevers. New blood cultures should be drawn if his temp gets to be greater than 38.6 (101.5), and provider notified. Qualifiers: Fever type: post-procedural Qualified Code(s): R50.82 - Postprocedural fever (4) Prostate cancer Impression: The patient is seen by Dr. Dee Pastrana at [facility] in [place], [place]. He was first diagnosed in [place] around 3-4 years ago and has been prescribed Alfuzosin. He underwent this latest prostate bx on 06/09 to evaluate and stage it as the patient wanted a more clear prognosis. Plan: Continue Alfuzosin daily, continue indwelling sanabria, and monitor for hematuria. (5) Alcohol dependence Impression: The patient admits to consuming 6-8 beers per day for the last several years. Plan: BEER TID to prevent alcohol withdrawal. Qualifiers: Substance use status: unspecified alcohol-induced disorder Qualified Code(s): F10.29 - Alcohol dependence with unspecified alcohol-induced disorder (6) Tobacco dependence Impression: The patient states that a year ago, he attempted to quit smoking, but he failed and when he started again graduated to a 2 PPD habit. He has been a life long smoker and started at age 17 years. Plan: Nicotine patch, daily. (7) Chronic back pain Impression: The patient states that he has been a hard worker all of his life. Since 1975, his back has bothered him. He states that no doctor would ever do surgery on it, and they just "throw pills at him to treat it". He is prescribed percocet, and 2 muscle relaxers. He drinks 6-8 beers per night and has recently started adding highly concentrated THC oil to his morning coffee. He also states that he has been told that he has RA in his back and right hand. The patient states that since his admission, his back has been very painful, more than usual. Plan: Continue home meds, with added acute pain meds, monitor pain and encourage movement. Qualifiers: Back pain location: back pain in unspecified location (8) Hyponatremia Impression: The patient was found to have a low sodium of 128, without confusion and this was also stable today at 129. This may be a chronic problem for him given his cancer history and alcoholism. He was given IV fluids for his first 24 hours of stay, and they will be discontinued tonight to promote sleep. Plan: Daily labs and monitor for increased confusion.
[2018-06-12] MEDS: SACCHAROMYCES BOULARDII 250 MG CAPSULE PO SCH ×2 (08:18→16:56)
[2018-06-12] MEDS: NICOTINE 21 MG PATCH TOP SCH (08:18)
[2018-06-12] MEDS: BUDESONIDE 0.5 MG/2 ML NEB INH SCH ×2 (09:11→19:34)
[2018-06-12] MEDS: POLYETHYLENE GLYCOL 3350 17 GM PACKET PO SCH (09:26)
[2018-06-12] MEDS ORDERED: DOCUSATE SODIUM 250 MG CAPSULE PO SCH (13:00)
[2018-06-12] MEDS: CEFEPIME 2 GM in SODIUM CHLORIDE 0.9% MINIBAG 100 ML IV SCH (16:06)
[2018-06-12] MEDS: TAMSULOSIN 0.4 MG CAPSULE PO SCH (16:52)
[2018-06-12] MEDS: BEER 480 ML CAN PO SCH ×4 (16:59→22:29)
[2018-06-13] MEDS: SODIUM CHLORIDE FLUSH 0.9% 10 ML SYRINGE IVP SCH ×2 (02:26→08:02)
[2018-06-13] MEDS: SODIUM CHLORIDE 0.9% 1,000 ML IV SCH (03:08)
[2018-06-13] MEDS: CEFEPIME 2 GM in SODIUM CHLORIDE 0.9% MINIBAG 100 ML IV SCH (04:45)
[2018-06-13 06:15] LABS: BASOPHILS % (AUTO) 0.5 %; EOSINOPHILS # (AUTO) 0.2 10^3/uL (0.0-0.7); EOSINOPHILS % (AUTO) 3.2 %; HGB - HEMOGLOBIN 10.5 g/dL (14.0-18.0); MEAN CORPUSCULAR HEMOGLOBIN 38.2 pg (27.0-31.0); MEAN CORPUSCULAR HGB CONC 34.8 g/dL (32.0-36.0); MEAN CORPUSCULAR VOLUME 109.8 fL (80.0-94.0); MEAN PLATELET VOLUME 7.6 fL (7.4-11.4); MONOCYTES # (AUTO) 0.5 10^3/uL (0.0-1.0); NEUTROPHILS # (AUTO) 5.3 10^3/uL (1.5-6.6); NEUTROPHILS % (AUTO) 75.3 %; PLT - PLATELET COUNT 178 10^3/uL (130-450); RED BLOOD COUNT 2.74 10^6/uL (4.70-6.10)
[2018-06-13 06:28] LABS: ALBUMIN 2.8 g/dL (3.2-5.5); BILIRUBIN,TOTAL 0.3 mg/dL (0.2-1.0); CALCIUM 9.7 mg/dL (8.5-10.3); CREATININE 0.7 mg/dL (0.6-1.2); TOTAL PROTEIN 5.5 g/dL (6.7-8.2)
[2018-06-13] MEDS: PANTOPRAZOLE 40 MG TABLET PO SCH (06:51)
[2018-06-13] MEDS: BUDESONIDE 0.5 MG/2 ML NEB INH SCH (07:21)
[2018-06-13] MEDS: NICOTINE 21 MG PATCH TOP SCH (08:00)
[2018-06-13] MEDS: SACCHAROMYCES BOULARDII 250 MG CAPSULE PO SCH (08:00)
[2018-06-13] MEDS: POLYETHYLENE GLYCOL 3350 17 GM PACKET PO SCH (08:02)
[2018-06-13 08:40] VITALS: BP 129/78
--- NOTE | 2018-06-13 09:25 | DISCHARGE SUMMARY ---
Discharge Summary Admit Date: 06/11/18 Discharge Date: 06/13/18 Discharging Provider: TESSA Cardenas Primary Care Provider: Dee Pastrana Code Status: Do Not Attempt Resuscitation Condition at Discharge: Good Discharge Disposition: 01 Home, Self Care - DIAGNOSES Admission Diagnoses: Bacteremia (R78.81) Gross hematuria (R31.0) Fever, unspecified (R50.9) Malignant neoplasm of prostate (C61) Alcohol dependence, uncomplicated (F10.20) Nicotine dependence, unspecified, uncomplicated (F17.200) Dorsalgia, unspecified (M54.9) Hypo-osmolality and hyponatremia (E87.1) Discharge Diagnoses with Status of Each Condition: E coli bacteremia (R78.81) new on this admission, stable and patient changed to PO antibiotics upon discharge for 28 days. Hematuria, gross (R31.0) resolved. Fever (R50.9) resolved. Prostate cancer (C61) chronic, stable. Alcohol dependence (F10.20) chronic, stable. Tobacco dependence (F17.200) chronic, stable. Chronic back pain (M54.9) chronic, stable. Hyponatremia (E87.1)chronic, stable. - HPI History of Present Illness: Pedro Hooker (Bob) is a 67-year old male with a past medical history of life long tobacco dependence, current alcoholism, COPD, chronic cough, chronic sinusitis, GERD, colon polyps, ischemic bowel with resection, umbilical hernia, hypertension, prostate cancer, RA, and chronic back pain. The patient underwent a prostate biopsy with Dr. Pastrana on 06/09/18 and was sent home on prophylactic Cipro. Yesterday he had fevers, chills, and severe rigors at home, so presented to the ED. He was stabilized and sent home, but this morning, blood cultures that were obtained yesterday show e. coli, so the patient was bonilla led at home to return to the ED for an inpatient admission. Upon arrival to the ED the patient has continued fatigue, poor appetite, rigors, chills, and a fever overnight that his took and reports as 102.4 orally. He states that he is having increased urinary retention symptoms, and when he does urinate, it is blood streaked. On exam, he denies chest pain, headaches, dizziness, nausea, vomiting, diarrhea, a new rash, increased shortness of breath, or a new productive cough. Vital signs appear stable and he is afebrile. He is accompanied by his Gretchen. He is agreeable to a hospital admission for treatment of this e. coli in his blood stream. With his current alcohol use, I will prescribe BEER, to prevent alcohol withdrawal. - HOSPITAL COURSE Hospital Course: (1) E coli bacteremia Final sensitivities are now back and show Zosyn as being resistant. After reviewing both the urine and blood culture sensitivity list, he will be changed to cefepime IV, since we do not care tetracycline to administer here. The patient was started on cefepime, and the pip-tazo was discontinued after sensitivities were resulted and was given BID probiotics. The patient was discharged on cefuroxime PO for 28 days for appropriate prostate penetration. (2) Hematuria, gross Today the patient is found to have no further bleeding in his sanabria and he has been quite happy with the catheter as it has been difficult to void since undergoing his prostate biopsy on 06/09. The catheter will likely stay in place until the time of discharge as keeping the bladder decompressed will prevent further bleeding and keep the prostate settled down. This condition was resolved upon discharge, and his sanabria was discontinued. (3) Fever The patient has not had any further documented fevers since being admitted. His antibiotic treatment was changed to the correct treatment based on sensitivit ies. The patient had no further symptoms of this. (4) Prostate cancer The patient is seen by Dr. Dee Pastrana at [facility] in [place], [place]. He was first diagnosed in [place] around 3-4 years ago and has been prescribed Alfuzosin. He underwent this latest prostate bx on 06/09 to evaluate and stage it as the patient wanted a more clear prognosis. The patient was continued on Alfuzosin daily, an indwelling sanabria was placed, and monitor for hematuria. (5) Alcohol dependence The patient admits to consuming 6-8 beers per day for the last several years. The patient was prescribed BEER TID to prevent alcohol withdrawal. (6) Tobacco dependence The patient states that a year ago, he attempted to quit smoking, but he failed and when he started again graduated to a 2 PPD habit. He has been a life long smoker and started at age 17 years. The patient was given a nicotine patch, daily, but denied any prescription for this as he plans on smoking. (7) Chronic back pain The patient states that he has been a hard worker all of his life. Since 1975, his back has bothered him. He states that no doctor would ever do surgery on it, and they just "throw pills at him to treat it". He is prescribed percocet, and 2 muscle relaxers. He drinks 6-8 beers per night and has recently started adding highly concentrated THC oil to his morning coffee. He also states that he has been told that he has RA in his back and right hand. The patient states that since his admission, his back has been very painful, more than usual. The patient was continued on his home meds, with added acute pain meds, and was monitored for pain and encouraged to walker. (8) Hyponatremia The patient was found to have a low sodium of 128, without confusion and this was also stable today at 129. This may be a chronic problem for him given his cancer history and alcoholism. He was given IV fluids for his first 24 hours of stay, and they will be discontinued tonight to promote sleep. This condition was stable, chronic on discharge. Disposition: The patient was discharged home with after sensitivities were resulted. He was planning on resuming his alcohol and tobacco use. - ALLERGIES Allergies/Adverse Reactions: Allergies Allergy/AdvReac Type Severity Reaction Status Date / Time No Known Drug Allergies Allergy Verified 06/11/18 07:53 - MEDICATIONS Home Medications: Ambulatory Orders Medication Instructions Recorded Confirmed Alfuzosin HCl [Uroxatral] 10 mg PO 1700 06/10/18 06/11/18 Cyclobenzaprine [Flexeril] 10 mg PO DAILY PRN 06/10/18 06/11/18 Fluticasone/Salmeterol [Advair 1 puffs INH BID 06/10/18 06/11/18 100-50 Diskus] Lisinopril 10 mg PO DAILY 06/10/18 06/11/18 Multivit-Min/FA/Lycopen/Lutein 1 tab PO DAILY 06/11/18 06/11/18 [Centrum Silver Men Tablet] Oxycodone HCl/Acetaminophen 1 tab PO BID PRN 06/11/18 06/11/18 [Oxycodone-Acetaminophen 5-325] Tizanidine HCl 4 mg PO QID PRN 06/11/18 06/11/18 Cefuroxime Axetil [Cefuroxime] 500 mg PO BID 28 Days #56 tablet 06/13/18 Saccharomyces Boulardii [Florastor] 250 mg PO BID 60 Days #120 capsule 06/13/18 Tamsulosin [Flomax] 0.4 mg PO DAILY #30 capsule 06/13/18 - PHYSICAL EXAM AT DISCHARGE General Appearance: positive: No acute distress, Alert Eyes Bilateral: positive: PERRL, No lid inflammation ENT: positive: Pharynx nml, No signs of dehydration Neck: positive: Thyroid nml, No JVD, Trachea midline Respiratory: positive: Chest non-tender, No respiratory distress, Other (diminished) Cardiovascular: positive: Regular rate & rhythm, No gallop, Systolic murmur Peripheral Pulses: positive: 2+ Abdomen: positive: Non-tender, Nml bowel sounds, Other (stable mid-line hernia, soft) Back: positive: Nml inspection Skin: positive: No rash, Warm, Dry Extremities: positive: Non-tender, Full ROM, Nml appearance, No pedal edema Neurologic/Psychiatric: positive: Oriented x3, CN's nml (2-12), Motor nml, Sensation nml, Mood/affect nml Reflexes: Bicep (R): 3+, Bicep (L): 3+ - LABS Result Diagrams: 06/13/18 05:33 06/13/18 05:33 - DIAGNOSTIC IMAGING Diagnostic Imaging Results: Final report reviewed Diagnostic Imaging Results Comments: Abdominal CT showed fat stranding around bladder indicating prostitis. Echo preliminary shows grade 2 diastolic dysfunction. - FOLLOW UP Follow Up: Disposition: 01 Home, Self Care Condition: Good Prescriptions: Cefuroxime Axetil [Cefuroxime] 500 mg PO BID 28 Days #56 tablet Saccharomyces Boulardii [Florastor] 250 mg PO BID 60 Days #120 capsule Tamsulosin [Flomax] 0.4 mg PO DAILY #30 capsule Diet: Regular Activity Restrictions: No Restrictions Shower Restrictions: No Driving Restrictions: No Weight Bearing: Full Weight Additional Instructions or Follow Up instructions: You were admitted for a UTI and a blood infection. You were started on antibiotics and after sensitivity testing was complete, a more narrow coverage was chosen. You will need custodial treatment for the next 28 days as this involved your prostate. You had blood in your urine, so in order to monitor this and give your bladder a break, an indwelling sanabria was inserted. You were started on Flomax to further help relax your prostate and prevent urinary retention. Please take a probiotic for the next 2 months to preserve the good bacteria in your GI tract. Please see your PCP within one week. - TIME SPENT Time Spent in Discharge (Minutes): 60
[2018-06-13] MEDS ORDERED: cefUROXime axetil 250 MG TABLET PO SCH (10:00)
== END 2018-06-13 13:02 | disposition home or self-care (01) | DRG 863 ==
LOC: ED 07:40 → MS2 08:40
PROVIDERS: ADMIT Nurse Practitioner; ATTEND Nurse Practitioner
DX: T81.40XA Infection following a procedure, unspecified, initial encounter (principal); N39.0 Urinary tract infection, site not specified; R78.81 Bacteremia; I10 Essential (primary) hypertension; F17.200 Nicotine dependence, unspecified, uncomplicated; E87.1 Hypo-osmolality and hyponatremia; F10.29 Alcohol dependence with unspecified alcohol-induced disorder; Y84.8 Other medical procedures as the cause of abnormal reaction of the patient, or of later complication, without mention of misadventure at the time of the procedure; N41.9 Inflammatory disease of prostate, unspecified; B96.20 Unspecified Escherichia coli [E. coli] as the cause of diseases classified elsewhere; R31.0 Gross hematuria; C61 Malignant neoplasm of prostate; N40.1 Benign prostatic hyperplasia with lower urinary tract symptoms; R33.8 Other retention of urine; R35.0 Frequency of micturition; R35.1 Nocturia; F10.20 Alcohol dependence, uncomplicated; F17.210 Nicotine dependence, cigarettes, uncomplicated; M06.9 Rheumatoid arthritis, unspecified; G89.29 Other chronic pain; J44.9 Chronic obstructive pulmonary disease, unspecified; K21.9 Gastro-esophageal reflux disease without esophagitis; I11.9 Hypertensive heart disease without heart failure; Z16.11 Resistance to penicillins; Z79.899 Other long term (current) drug therapy; Z79.891 Long term (current) use of opiate analgesic; Z66 Do not resuscitate; Z79.51 Long term (current) use of inhaled steroids; Z90.49 Acquired absence of other specified parts of digestive tract; Z98.890 Other specified postprocedural states
CPT/HCPCS: 36415; 74177; 80048; 80053; 83036; 83605; 83735; 84100; 84443; 85025; 93306; 94640; 99283; 99284

== ENCOUNTER 2019-02-23 11:00 | Outpatient (CLI) | payer MEDICARE, OTHER | END 2019-02-23 11:01 | disposition critical access hospital (66) | LOC: EMS 11:00 | PROVIDERS: ATTEND Surgery | DX: R10.11 Right upper quadrant pain (principal) | CPT/HCPCS: A0425; A0429 ==

== ENCOUNTER 2019-02-23 11:29 | Emergency (ER) | payer MEDICARE, OTHER ==
--- NOTE | 2019-02-23 11:54 | ED Physician Documentation ---
History of Present Illness - Stated complaint Stated Complaint: ABD PX - Chief complaint Chief Complaint: Abd Pain - History obtained from History obtained from: Patient PD PAST MEDICAL HISTORY - Past Medical History Past Medical History: Yes Cardiovascular: Hypertension Respiratory: COPD Neuro: Tremors Endocrine/Autoimmune: None GI: GERD, Colon polyps MANAGER COSTING: None : Benign prostate hypertrophy, Retention, Nocturia, Frequency, Other HEENT: Chronic vision loss, Chronic sinusitis Psych: None Musculoskeletal: Rheumatoid arthritis, Chronic back pain Derm: None - Past Surgical History Past Surgical History: Yes General: Bowel surgery, Colonoscopy, Other - Present Medications Home Medications: Ambulatory Orders Medication Instructions Recorded Confirmed Alfuzosin HCl [Uroxatral] 10 mg PO 1700 06/10/18 06/11/18 Cyclobenzaprine [Flexeril] 10 mg PO DAILY PRN 06/10/18 06/11/18 Fluticasone/Salmeterol [Advair 1 puffs INH BID 06/10/18 06/11/18 100-50 Diskus] Lisinopril 10 mg PO DAILY 06/10/18 06/11/18 Multivit-Min/FA/Lycopen/Lutein 1 tab PO DAILY 06/11/18 06/11/18 [Centrum Silver Men Tablet] Oxycodone HCl/Acetaminophen 1 tab PO BID PRN 06/11/18 06/11/18 [Oxycodone-Acetaminophen 5-325] Tizanidine HCl 4 mg PO QID PRN 06/11/18 06/11/18 Cefuroxime Axetil [Cefuroxime] 500 mg PO BID 28 Days #56 tablet 06/13/18 Saccharomyces Boulardii [Florastor] 250 mg PO BID 60 Days #120 capsule 06/13/18 Tamsulosin [Flomax] 0.4 mg PO DAILY #30 capsule 06/13/18 - Allergies Allergies/Adverse Reactions: Allergies Allergy/AdvReac Type Severity Reaction Status Date / Time No Known Drug Allergies Allergy Verified 02/23/19 11:43 - Social History Does the pt smoke?: Yes Smoking Status: Current every day smoker Does the pt drink ETOH?: Yes Does the pt have substance abuse?: No - Immunizations Immunizations are current?: Yes - POLST Patient has POLST: No POLST Status: DNR Results - Vitals Vitals: Vital Signs - 24 hr 02/23/19 02/23/19 11:39 13:33 Temperature 36.8 C 36.6 C Heart Rate 82 74 Respiratory 14 16 Rate Blood Pressure 142/83 H 129/85 H O2 Saturation 93 96 Oxygen O2 Source Room air - Labs Labs: Laboratory Tests 02/23/19 02/23/19 02/23/19 11:59 11:59 12:15 WBC 7.5 RBC 3.55 L Hgb 12.4 L Hct 34.9 L MCV 98.3 H MCH 34.9 H MCHC 35.5 RDW 13.2 Plt Count 289 MPV 8.5 Neut # (Auto) 6.3 Lymph # (Auto) 0.8 L Caroline # (Auto) 0.3 Eos # (Auto) 0.0 Baso # (Auto) 0.0 Absolute Nucleated RBC 0.00 Nucleated RBC % 0.0 Sodium 129 L Potassium 4.5 Chloride 98 L Carbon Dioxide 23 Anion Gap 8.0 BUN 8 Creatinine 0.7 Estimated GFR (MDRD) 112 Glucose 110 H Lactic Acid 0.7 Calcium 10.9 H Total Bilirubin 0.8 AST 22 ALT 14 Alkaline Phosphatase 79 Total Protein 6.9 Albumin 3.7 Globulin 3.2 Albumin/Globulin Ratio 1.2 Lipase 28 Urine Color Urine Clarity Urine pH Ur Specific Almo Urine Protein Urine Glucose (UA) Urine Ketones Urine Occult Blood Urine Nitrite Urine Bilirubin Urine Urobilinogen Ur Leukocyte Esterase Ur Microscopic Review Urine Culture Comments 02/23/19 13:00 WBC RBC Hgb Hct MCV MCH MCHC RDW Plt Count MPV Neut # (Auto) Lymph # (Auto) Caroline # (Auto) Eos # (Auto) Baso # (Auto) Absolute Nucleated RBC Nucleated RBC % Sodium Potassium Chloride Carbon Dioxide Anion Gap BUN Creatinine Estimated GFR (MDRD) Glucose Lactic Acid Calcium Total Bilirubin AST ALT Alkaline Phosphatase Total Protein Albumin Globulin Albumin/Globulin Ratio Lipase Urine Color LIGHT YELLOW Urine Clarity CLEAR Urine pH 7.0 Ur Specific Almo <=1.005 Urine Protein NEGATIVE Urine Glucose (UA) NEGATIVE Urine Ketones NEGATIVE Urine Occult Blood NEGATIVE Urine Nitrite NEGATIVE Urine Bilirubin NEGATIVE Urine Urobilinogen 0.2 (NORMAL) Ur Leukocyte Esterase NEGATIVE Ur Microscopic Review NOT INDICATED Urine Culture Comments NOT INDICATED PD MEDICAL DECISION MAKING - ED course Complexity details: reviewed old records, reviewed results, re-evaluated patient, considered differential, d/w patient ED course: Patient presenting with generalized abdominal pain after heavy meal last night. Patient denies specific GERD-like symptoms and have low suspicion for esophagitis, PUD, or GERD at this time. Do have concern for possible pancreatitis, as well as small bowel obstruction. Also considering viral illness or foodborne illness. Considered AAA, dissection, renal disease, UTI, diverticulitis, gallbladder disease, appendicitis, but feel much less likely. Patient started on IV fluids, nausea and pain medication upon reevaluation, comfortable and sleeping. Screening lab work returned relatively unremarkable, as did urinalysis with exception of mild hyponatremia, which was addressed with fluids. CT abdomen/pelvis found evidence of swelling and mild ascites, but no other acute findings of multiple incidental findings, which were shared with patient. Patient received a printout of his CT abdomen/pelvis results. At this time, feel the patient is safe to discharge home but advised on diet and hydration recommendations, return precautions, supportive cares, and follow-up. Patient voiced understanding and is comfortable with discharge plan. Departure - Departure Disposition: 01 Home, Self Care Clinical Impression: Abdominal pain Qualifiers: Abdominal location: generalized Qualified Code(s): R10.84 - Generalized abdominal pain Condition: Good Instructions: ED Abdominal Pain Unkn Cause Follow-Up: your,doctor [Other] Comments: Recommend hydration and advancing diet as tolerated with starting with bland foods and clear fluid.Continue home medications as prescribed. Follow-up with primary care physician in next 2 to 3 days and return to ED sooner if experience worsening symptoms or have other concerns.
[2019-02-23] MEDS ORDERED: SODIUM CHLORIDE 0.9% 1,000 ML IV ONE (12:00)
[2019-02-23] MEDS ORDERED: ONDANSETRON 4 MG/2 ML VIAL IVP STA (12:00)
[2019-02-23] MEDS ORDERED: HYDROmorphone 1 MG/ML CARPUJECT IVP STA (12:01)
[2019-02-23 12:04] LABS: BASOPHILS % (AUTO) 0.4 %; EOSINOPHILS % (AUTO) 0.4 %; HGB - HEMOGLOBIN 12.4 g/dL (14.0-18.0); LYMPHOCYTES # (AUTO) 0.8 10^3/uL (1.5-3.5); LYMPHOCYTES % (AUTO) 10.5 %; MEAN CORPUSCULAR HEMOGLOBIN 34.9 pg (27.0-31.0); MEAN CORPUSCULAR HGB CONC 35.5 g/dL (32.0-36.0); MEAN CORPUSCULAR VOLUME 98.3 fL (80.0-94.0); MEAN PLATELET VOLUME 8.5 fL (7.4-11.4); MONOCYTES # (AUTO) 0.3 10^3/uL (0.0-1.0); MONOCYTES % (AUTO) 4.5 %; NEUTROPHILS # (AUTO) 6.3 10^3/uL (1.5-6.6); NEUTROPHILS % (AUTO) 83.9 %; PLT - PLATELET COUNT 289 10^3/uL (130-450); RED BLOOD COUNT 3.55 10^6/uL (4.70-6.10); RED CELL DISTRIBUTION WIDTH 13.2 % (12.0-15.0); WHITE BLOOD COUNT 7.5 x10^3/uL (4.8-10.8)
[2019-02-23 12:19] LABS: ALBUMIN 3.7 g/dL (3.2-5.5); ALBUMIN/GLOBULIN RATIO 1.2 (1.0-2.2); BILIRUBIN,TOTAL 0.8 mg/dL (0.2-1.0); CALCIUM 10.9 mg/dL (8.5-10.3); CREATININE 0.7 mg/dL (0.6-1.2); TOTAL PROTEIN 6.9 g/dL (6.7-8.2)
[2019-02-23] MEDS ORDERED: IOVERSOL 320 100 ML VIAL IVP ONE ×2 (12:58→13:21)
[2019-02-23 13:23] LABS: BILIRUBIN,URINE NEGATIVE (NEGATIVE); CLARITY,URINE CLEAR (CLEAR); GLUCOSE, URINE (UA) NEGATIVE (NEGATIVE); KETONES,URINE (UA) NEGATIVE (NEGATIVE); LEUKOCYTE ESTERASE, URINE NEGATIVE (NEGATIVE); NITRITE,URINE NEGATIVE (NEGATIVE); OCCULT BLOOD,URINE NEGATIVE (NEGATIVE); PROTEIN,URINE NEGATIVE (NEGATIVE); UROBILINOGEN,URINE 0.2 (NORMAL) E.U./dL (NORMAL)
--- NOTE | 2019-02-23 13:50 | CT Report ---
Reason: midline abdominal pain, history of many surg Procedure Date: 02/23/2019 Accession Number: [id number] / [id number] Procedure: CT - Abdomen/Pelvis W CPT Code: FULL RESULT: EXAM: CT ABDOMEN AND PELVIS EXAM DATE: 02/23/2019 01:18 PM. CLINICAL HISTORY: Midline abdominal pain, history of many surgeries. COMPARISONS: ABDOMEN/PELVIS W/ 06/11/2018 8:28 PM. TECHNIQUE: Routine helical CT imaging was performed through the abdomen and pelvis. IV contrast: 100 mL Optiray 320. Enteric contrast: No. Reconstructions: Coronal and sagittal. In accordance with CT protocol optimization, one or more of the following dose reduction techniques were utilized for this exam: automated exposure control, adjustment of mA and/or KV based on patient size, or use of iterative reconstructive technique. FINDINGS: Lung Bases: Evaluation of lung bases limited by motion. Linear consolidation at the right lung base, favor atelectasis or scarring. There are bilateral solid nodules which measure 3 mm or less. A 0.7 cm ground-glass nodule is also potentially visualized on image 5 series 3. There is a pericardial effusion. Liver: Normal. No masses. Gallbladder/Bile Ducts: Unremarkable. Spleen: Normal. Pancreas: Normal. Adrenal Glands: Normal. Kidneys: Right kidney contains a uncharacterized 2.7 x 4.0 cm cystic mass. Additional subcentimeter hypodensity in the right kidney is too small to characterize. There is bilateral perinephric fat stranding. No hydronephrosis. Peritoneal Cavity/Bowel: There is small volume ascites and generalized mesenteric edema. Patient is status post partial ascending colectomy and ventral hernia repair, presumably the site of prior diversion. Portion of a bowel loop is seen protruding past the area of mesh repair as seen on image 59 series 3, uncertain significance. There is no free air. Pelvic Organs: Prominent pelvic lymph nodes do not meet size criteria. The bladder is markedly distended. Vasculature: Atherosclerotic disease without an aneurysm of the aorta. Bones: No significant abnormality. Other: Superficial soft tissue edema is noted. IMPRESSION: Small volume ascites, mesenteric edema, pericardial effusion and perinephric fat stranding as well as soft tissue edema superficially, anasarca. Uncharacterized cystic renal mass on the right. Recommend retroperitoneal ultrasound versus definitive characterization by multiphase CT. Suggestion of lung nodules. Recommend consideration for routine outpatient chest CT for complete visualization, otherwise recommend follow-up of the described nodule(s) according to the following guidelines: Fleischner Society Recommendations 2017 MacMahon et al. Radiology 2017 Solid Nodules-Low Risk Patients: <6 mm (single or multiple) - No routine follow-up* Solid Nodules-High Risk Patients: <6 mm (single or multiple) -Optional CT at 12 months* *Nodules < 6mm do not require routine follow-up, but suspicious nodule morphology, upper lobe location, or both may warrant 12 month follow-up Subsolid nodules: >=6 mm (single GG) -CT at 6-12 months to confirm, then CT q2 years until 5 years Consider follow-up at 2 and 4 years for certain suspicious nodules <6mm. If solid component develops or growth, consider resection. RADIA
[2019-02-23 15:17] VITALS: BP 131/90
== END 2019-02-23 15:24 | disposition home or self-care (01) ==
LOC: EDUNIT# → ED 11:29
DX: R10.84 Generalized abdominal pain (principal); R18.8 Other ascites; E87.1 Hypo-osmolality and hyponatremia; N28.89 Other specified disorders of kidney and ureter; I10 Essential (primary) hypertension; F17.200 Nicotine dependence, unspecified, uncomplicated; Z66 Do not resuscitate
CPT/HCPCS: 36415; 74177; 80053; 81003; 83605; 83690; 85025; 96361; 96374; 99281; 99283; J1170; Q9967; 81001; 87086